=== PATIENT | female | born 1985 | race Caucasian/White ===

== ENCOUNTER 2016-06-17 10:55 | Emergency (ER) | payer OTHER ==
[~2016-06-17] VITALS: Ht 177.8 cm; Wt 81.6 kg
[~2016-06-17 10:55] MED LIST: CITRANATAL HAR1 EACH PO; IBUPROFEN800 M1 PO; PERCOCET 325 MG1 TA2 PO
--- NOTE | 2016-06-17 13:12 | ED PSYCHIATRIC COMPLAINT ---
History of Present Illness General Chief Complaint: Psychiatric Related Complaint Stated Complaint: DEPRESSION Source: patient, old records Exam Limitations: no limitations Vital Signs & Intake/Output Vital Signs & Intake/Output Vital Signs Date Time Temp Pulse Resp B/P Pulse O2 O2 Flow FiO2 Ox Delivery Rate 06/17 1300 98 06/17 1300 97.4 53 16 120/75 98 Room Air 06/17 1107 97.2 74 20 106/66 97 Room Air Allergies Uncoded Allergies: EMBREL (Mild, SKIN REACTION 06/17/16) Reconcile Medications Ibuprofen 800 MG TABLET 800 MG PO Q6P PRN UTERINE CRAMPING Pnv59/Iron,Carb&Fum/FA/Dss/Dha (Citranatal [place] Capsule) 1 EACH CAPSULE 1 CAP PO DAILY (Reported) Triage Note: PT SIB [address] [facility] FOR POST DEPRESSION. PT IS 12 WEEKS AND FEELING ANXIETY, DEPRESSION AND OVERWHELMED. STATES IS IN IS GETTING DEPLOYED IN NOVEMBER. Triage Nurses Notes Reviewed? yes Onset: Evening Duration: week(s):, continues in ED, getting worse Timing: recent history Severity: moderate Associated Symptoms: anxiety, impaired concentration, insomnia LMP (ages 10-50): unknown : No Patient currently breastfeeds: No HPI: Patient is 12 weeks with insomnia anorexia frustration contemplating striking her child. She denies fever chills nausea vomiting diarrhea abdominal pain chest pain shortness breath headache dysuria rash bleeding suicidal ideation homicidal ideation hallucination. Past History Travel History Traveled to [place] past 21 day No Medical History Any Pertinent Medical History? 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 No Review of Systems Review of Systems Constitutional: Reports: no symptoms. EENTM: Reports: no symptoms. Respiratory: Reports: no symptoms. Cardiovascular: Reports: no symptoms. GI: Reports: no symptoms. Genitourinary: Reports: no symptoms. Musculoskeletal: Reports: no symptoms. Skin: Reports: no symptoms. Neurological/Psychological: Reports: see HPI, anxiety, confusion, depressed. Hematologic/Endocrine: Reports: no symptoms. Immunologic/Allergic: Reports: no symptoms. All Other Systems: Reviewed and Negative Physical Exam Physical Exam General Appearance: well developed/nourished, alert, awake, anxious, mild distress Head: atraumatic, normal appearance Eyes: Bilateral: normal appearance, PERRL, EOMI. Ears, Nose, Throat: normal pharynx, normal ENT inspection, hearing grossly normal Neck: normal inspection, supple, full range of motion, no midline tenderness Respiratory: normal breath sounds, chest non-tender, no respiratory distress, quiet respiration, lungs clear Cardiovascular: regular rate/rhythm, normal peripheral pulses, norml femoral pulses equa Gastrointestinal: normal bowel sounds, soft, non-tender, no organomegaly Extremities: normal range of motion, no ligament instability Neurological/Psychiatric: no motor/sensory deficits, awake, agitated, alert, anxious, japanese interpreter II-XII nml as tested Appearance/Memory/Insight: impaired insight Behavoir/Eye Contact/Speech: cooperative, normal speech Thoughts/Hallucinations: no apparent hallucination Skin: intact, normal color, warm/dry SAD PERSONS Done? patient not suicidal Progress Differential Diagnosis: drug intoxication, drug overdose, drug withdrawal, electrolyte abnormality, hypoglycemia, hypothyroidism Plan of Care: Orders Procedure Date/time Status Regular Diet 06/18 D Active Regular Diet 06/17 L Active URINE DRUG SCREEN FOR ER ONLY 06/17 1315 Complete TSH REFLEX 06/17 1315 Complete ETHANOL 06/17 1315 Complete COMPREHENSIVE METABOLIC PANEL 06/17 1315 Complete CBC WITHOUT DIFFERENTIAL 06/17 1315 Complete ED CRISIS PSYCH CONSULT 06/17 1315 Active Laboratory Tests 06/17/16 1527: Urine Opiates Screen < 100.00, Methadone Screen < 40, Barbiturate Screen < 60, Ur Phencyclidine Scrn < 6.00, Amphetamines Screen < 100, U Benzodiazepines Scrn < 85, Urine Cocaine Screen < 50, Urine Cannabis Screen < 5.00 06/17/16 1416: Anion Gap 12, Estimated GFR > 60, BUN/Creatinine Ratio 12.9, Glucose 87, Calcium 10.0, Total Bilirubin 0.6, AST 21, ALT 40, Alkaline Phosphatase 74, Total Protein 7.5, Albumin 4.6, Globulin 2.9, Albumin/Globulin Ratio 1.6, TSH &T3 & Free T4 Intrp 1.420, CBC w Diff MAN DIFF ORDERED, RBC 4.59, MCV 92.4, MCH 31.0, RDW 13.1, MPV 8.4, Gran % 59.3, Lymphocytes % 36.3, Monocytes % 3.6, Eosinophils % 0.5, Basophils % 0.3, Absolute Granulocytes 5.8, Absolute Lymphocytes 3.6 H, Absolute Monocytes 0.4, Absolute Eosinophils 0, Absolute Basophils 0, Platelet Estimate VERIFIED BY SMEAR, Normocytic RBCs VERIFIED, Normochromic RBCs VERIFIED , PUBS MCHC 33.5, Serum Alcohol < 10.0 Departure Departure Time of Disposition: 1700 Disposition: HOME OR SELF CARE Condition: Stable Clinical Impression Primary Impression: depression Referrals: PATIENT HAS NO PRIMARY CARE DR (PCP/Family) Additional Instructions: Follow up with the recommendations of the barrow worker Departure Forms: Customer Survey General Discharge Information
[2016-06-17 14:37] LABS: ABSOLUTE BASOPHIL COUNT 0 /CUMM (0.0-0.2); ABSOLUTE EOSINOPHIL COUNT 0 /CUMM (0.0-0.7); ABSOLUTE GRANULOCYTE CT 5.8 /CUMM (1.4-6.5); ABSOLUTE LYMPH COUNT 3.6 /CUMM (1.2-3.4); ABSOLUTE MONOCYTE COUNT 0.4 /CUMM (0.10-0.60); BASOPHIL % 0.3 % (0.0-2.0); EOSINOPHIL % 0.5 % (0-5); GRANULOCYTE % 59.3 % (42.2-75.2); HEMATOCRIT 42.4 % (37-47); MEAN CORPUSCULAR HGB CONC 33.5 G/DL (33.0-37.0); MEAN CORPUSCULAR VOLUME 92.4 FL (81.0-99.0); MEAN PLATELET VOLUME 8.4 FL (7.4-10.4); PLATELET COUNT 263 /CUMM (130-400); RBC DISTRIBUTION WIDTH 13.1 % (11.5-14.5); RED BLOOD CELL CT 4.59 /CUMM (4.20-5.40); WHITE BLOOD CELL COUNT 9.8 /CUMM (4.8-10.8)
--- NOTE | 2016-06-17 17:17 | ED PSYCH CRISIS CONSULTATION ---
Crisis Consult Basic Assessment Date of Consult: 06/17/16 Responsible Person/Accompanied By: is with her Insurance Authorization: Insurance #1: Insurance name: [employer] [place]. 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 Her and the baby are present. pt was at her Obgyn earlier, and she wanted some help with anxiety, as she reports she has no psych history. Pt states she told her obgyn, that she feels like squeezing her babies face and she sent her here for further evaluation. I met with pt privately, and her states he is not worried about her safety, and he is comfortable with her watching the baby alone. They have been 2 years and have been dating for 3 years before that. Pt is overwhelmed that her will be deployed in November and that he is a service desk technician in [place], he works 3 nights in a row and she is alone with the baby. Although he sleeps well, she reports he slept 5 hours last night. She denies si/hi/ah/vh. She reports wanting to control everything, and having trouble asking for help. She would like to start medication short term and talk with a therapist. Pt denies wanting to harm her baby. Pt has insurance and we discussed resources to call to begin treatment tomorrow, including 211 for mobile psych services. Patient's Address: [address] [place] [address] Other Phone Number: Who Do You Live With? Family Family/Informants Interviewed: Massimo holt does feel safe with caring for their baby, and that he would be supportive to getting her help. Allergies - Uncoded Allergies: EMBREL (Mild, SKIN REACTION 06/17/16) Current Medications - Scheduled Medications Pnv59/Iron,Carb&Fum/FA/Dss/Dha (Citranatal [place] Capsule) 1 EACH CAPSULE 1 CAP PO DAILY #30 (Reported) Entered as Reported by LILY WALLACE on 11/15/15 1859 Scheduled PRN Medications Ibuprofen 800 MG TABLET 800 MG PO Q6P PRN UTERINE CRAMPING #30 Prescribed by SARAH PARIS DO on 03/11/16 Laboratory Results: Laboratory Tests 06/17/16 1527: Urine Opiates Screen < 100.00, Methadone Screen < 40, Barbiturate Screen < 60, Ur Phencyclidine Scrn < 6.00, Amphetamines Screen < 100, U Benzodiazepines Scrn < 85, Urine Cocaine Screen < 50, Urine Cannabis Screen < 5.00 06/17/16 1416: Anion Gap 12, Estimated GFR > 60, BUN/Creatinine Ratio 12.9, Glucose 87, Calcium 10.0, Total Bilirubin 0.6, AST 21, ALT 40, Alkaline Phosphatase 74, Total Protein 7.5, Albumin 4.6, Globulin 2.9, Albumin/Globulin Ratio 1.6, TSH &T3 & Free T4 Intrp 1.420, CBC w Diff MAN DIFF ORDERED, RBC 4.59, MCV 92.4, MCH 31.0, RDW 13.1, MPV 8.4, Gran % 59.3, Lymphocytes % 36.3, Monocytes % 3.6, Eosinophils % 0.5, Basophils % 0.3, Absolute Granulocytes 5.8, Absolute Lymphocytes 3.6 H, Absolute Monocytes 0.4, Absolute Eosinophils 0, Absolute Basophils 0, Platelet Estimate VERIFIED BY SMEAR, Normocytic RBCs VERIFIED, Normochromic RBCs VERIFIED , PUBS MCHC 33.5, Serum Alcohol < 10.0 Past History Past Medical History Neurological: NONE EENT: NONE Cardiovascular: NONE Respiratory: NONE Gastrointestinal: NONE Hepatic: NONE Renal: NONE Musculoskeletal: rheumatoid arthritis Psychiatric: NONE Endocrine: NONE Blood Disorders: NONE Cancer(s): NONE 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 Past Surgical History Surgical History: none Psychosocial History Strengths/Capabilities: supportive , wants to connect with outpatient services for anxiety Psychiatric Treatment History Psych Treatment Psychiatric Treatment No Diagnosis by History: Unknown Substance Use/Abuse History Drug Use/Abuse Substances Used/Abused No Substance Abuse Treatment Substance Abuse Treatment Past Substance Abuse [place] No Current Mental Status Mental Status Orientation: Person, Place, Situation Affect: Anxious, Sad Speech: WNL Neuro-vegetative: Appetite Decreased, Helpless, Sleep Disturbance Appearance Appearance- Dress/Hygiene: Well groomed Behaviors Thought Process: Irrational Thought Content: WNL Memory: WNL Insight: Fair SI/HI Risk Assessment Past Suicidal Ideation/Attempts No Current Suicidal Ideation/Att No Past Homicidal Ideation/Att: No Current Homicidal Ideation/Attempts No Degree of Intent: None Risk Factors: high anxiety/distress, limited support Lethality Ratin PTSD Checklist PTSD Done? patient declined ED Management Sitter: Yes Restraints: No DSM5/PS Stressors/Medical Prob Diagnosis' (DSM 5, Stressors, Medical): F41.9 Generalized anxiety disorder onset Current GAF: 38 Departure Disposition Psych Medical Clearance Date: 06/17/16 Medically Cleared at: 1630 Time Started: 1630 Time Ended: 1729 Psychiatrist Consulted: qing Date Disposition Established: 06/17/16 Time Disposition Established: 1729 Plan for Disposition - Modality: Outpatient Facility: Patient to Arrange Follow-up Appt Date: 06/18/16 Rationale for Disposition: Consulted with Dr. Tejeda, pt will return home with , and was given a list of providers for outpatient support, including [facility] which is a resource for mothers. Pt encouraged to look for more support agrees and would consider his parents as well or her father. Additional Instructions: Pt to follow up with looking into support services for mother i.e. mothers helpers Referrals PATIENT HAS NO PRIMARY CARE DR (PCP/Family)
[2016-06-17 17:32] VITALS: BP 136/83
== END 2016-06-17 17:33 ==
LOC: ERH 10:55
PROVIDERS: Emergency Medicine
DX: F53 Mental and behavioral disorders associated with the puerperium, not elsewhere classified (principal); F10.10 Alcohol abuse, uncomplicated
CPT/HCPCS: 80307; G0463; G0480

== ENCOUNTER 2017-07-02 08:39 | Inpatient (IN) | payer OTHER ==
[~2017-07-02] VITALS: Ht 177.8 cm; Wt 87.5 kg
[2017-07-02 08:58] VITALS: BP 113/68
--- NOTE | 2017-07-02 09:46 | History & Physical ---
General Information and HPI MD Statement: I have seen and personally examined JESI HERRON and documented this H&P. The patient is a 31 year old female at 39 weeks and 2 days gestation who presented with a chief complaint of ADVANCED CERVICAL DILATION. Source of Information: patient, old records Exam Limitations: no limitations History of Present Illness: PT well known to our practice who is dilated 4-5 cm and requests elective induction since her is on leave from the [employer]. GBS positive no allergy to Penicillin H/O RA no meds H/O PP depression H/O pyelonephritis Allergies/Medications Allergies: Uncoded Allergies: EMBREL (Mild, SKIN REACTION 06/17/16) Home Med list Pnv59/Iron,Carb&Fum/FA/Dss/Dha (Citranatal [place] Capsule) 1 EACH CAPSULE 1 CAP PO DAILY (Reported) Compliance With Home Meds: GOOD Past History reference assistant History : 2 Para: 1 Last Menstrual Period: 09/30/2016 Estimated Delivery Date: 07/07/2017 Past reference assistant History: none Past Pregnancies Past Pregnancies: Date of Delivery: 03/09/2016 Gestational Age: 39w4d Length of Labor: 24 hours Weight: 9# 10 oz Type of Delivery: vaginal Anesthesia: epidural Place of Delivery: [place] Complications: none Medical History Blood Transfusion Hx: No Neurological: NONE EENT: NONE Cardiovascular: NONE Respiratory: NONE Gastrointestinal: NONE Hepatic: NONE Renal: NONE Musculoskeletal: rheumatoid arthritis Psychiatric: NONE Endocrine: NONE Blood Disorders: NONE Cancer(s): NONE Surgical History Pertinent Surgical History: none, N Past Family/Social History Psychosocial History Smoking Status: Never Smoked Review of Systems Review of Systems Constitutional: Reports: no symptoms. Denies: chills, fever. EENTM: Denies: blurred vision, double vision, visual changes. Cardiovascular: Denies: chest pain, palpitations, peripheral edema. Respiratory: Denies: short of breath. GI: Denies: nausea, vomiting. Neurological/Psychological: Denies: anxiety, depressed. Exam & Diagnostic Data Last 24 Hrs of Vital Signs/I&O Vital Signs Date Time Temp Pulse Resp B/P B/P Pulse O2 O2 Flow FiO2 Mean Ox Delivery Rate 07/02 0858 113/68 Intake & Output 07/02 1600 07/02 0800 07/02 0000 Intake Total Output Total Balance Patient 193 lb Weight Obstetric Exam Wgt Gained During : 30 lbs Pelvimetry: tested to 9# 10oz Dilation (cm): 4 Effacement (%): 60 Station: 0 Membranes: AROM Fluid: clear Fundal Height (cm): 39 Multiple Gestation? No Contractions: none Infant #1 - FHR Baseline: 140 Category: 1 Estimated Weight: 8# Presentation: vtx Patient for Induction? Yes Burr Score Burr Score Response Value Cervix Position: mid-position 1 Cervix Consistency: soft 2 Cervix Effacement: 60-70% 2 Cervix Dilation: 3-4 cm 2 Cervix Station: +1,+2 3 Total 10 Physical Exam General Appearance Alert, Oriented X3, Cooperative, No Acute Distress Skin No Rashes HEENT Atraumatic Neck Supple Cardiovascular Regular Rate Lungs Clear to Auscultation Abdomen Soft, No Tenderness Neurological Normal Gait, Normal Speech, Normal Tone Extremities No Edema Labs Blood Type & Rh: A pos Antibody Screen: neg Hct/Hgb & Platelets #1: 39/12.3/241 Hct/Hgb & Platelets #2: 38/11.4/212 Rubella: imm VDRL #1: nr VDRL #2: nr HbsAg: neg HIV #1: nr HIV #2 nr 1 Hr P Group B Strep: positive Initial Ultrasound: 12/02/2016 9w Anatomy Ultrasound: 02/17/2017 normal Ultrasound for EFW: 06/09/2017 7#1oz Genetic Testing: NT normal, early screen normal MSAFP negative Last 24 Hrs of Labs/Keo: Laboratory Tests 07/02/17 0924: CBC w Diff Pending, WBC Pending, RBC Pending, Hgb Pending, Hct Pending, MCV Pending, MCH Pending, MCHC Pending, RDW Pending, Plt Count Pending, MPV Pending Assessment/Plan Assessment/Plan: IUP at term advanced cervical dilation GBS positive no allergy to Penicillin H/O RA no meds H/O PP depression H/O pyelonephritis As Ranked By This Provider Problem List: 1. Core Measures Venous Thromboembolism VTE Risk Factors / No Mechanical VTE Prophylaxis d/t LowRisk-No Interven Req'd No VTE Pharm Prophylaxis d/t LowRisk-No Interven Req'd Attending MD Review Statement Attending Statement Attending MD Statement: examined this patient, discussed with family, discussed w/nursing
[2017-07-02 09:56] LABS: ABSOLUTE BASOPHIL COUNT 0 /CUMM (0.0-0.2); ABSOLUTE EOSINOPHIL COUNT 0 /CUMM (0.0-0.7); ABSOLUTE GRANULOCYTE CT 4.9 /CUMM (1.4-6.5); ABSOLUTE LYMPH COUNT 2.3 /CUMM (1.2-3.4); ABSOLUTE MONOCYTE COUNT 0.3 /CUMM (0.10-0.60); BASOPHIL % 0.3 % (0.0-2.0); EOSINOPHIL % 0.5 % (0-5); GRANULOCYTE % 65.2 % (42.2-75.2); HEMATOCRIT 34.1 % (37-47); MEAN CORPUSCULAR HGB 31.7 PG (27.0-31.0); MEAN CORPUSCULAR HGB CONC 33.8 G/DL (33.0-37.0); MEAN CORPUSCULAR VOLUME 93.7 FL (81.0-99.0); MEAN PLATELET VOLUME 9.9 FL (7.4-10.4); PLATELET COUNT 182 /CUMM (130-400); RBC DISTRIBUTION WIDTH 13.5 % (11.5-14.5); RED BLOOD CELL CT 3.64 /CUMM (4.20-5.40); WHITE BLOOD CELL COUNT 7.6 /CUMM (4.8-10.8)
--- NOTE | 2017-07-02 14:07 | Labor & Delivery Summary ---
Delivery Summary Vaginal Delivery: Vaginal: vertex Episiotomy/Lacerations: Episiotomy/Lacerations: 1 DEGREE Type: 1 DEGREE Repair: 3-0 POLYSORB Anesthesia: 5CC NESACANE Placenta: Placenta: spontanteous, normal, 3 vessel Anesthesia: none Baby's Weight: 9# 4OZ Apgars - 1 Min: 9 Apgars - 5 Min: 9 Additional Comments: NO TIME FOR EPIDURAL 3 PUSHES WITH ONLY A SMALL 1DEGREE MIDLINE LAC
[2017-07-03 09:26] LABS: ABSOLUTE BASOPHIL COUNT 0 /CUMM (0.0-0.2); ABSOLUTE EOSINOPHIL COUNT 0 /CUMM (0.0-0.7); ABSOLUTE GRANULOCYTE CT 7.4 /CUMM (1.4-6.5); ABSOLUTE LYMPH COUNT 1.9 /CUMM (1.2-3.4); ABSOLUTE MONOCYTE COUNT 0.2 /CUMM (0.10-0.60); BASOPHIL % 0.3 % (0.0-2.0); EOSINOPHIL % 0.3 % (0-5); GRANULOCYTE % 77.3 % (42.2-75.2); MEAN CORPUSCULAR HGB 31.8 PG (27.0-31.0); MEAN CORPUSCULAR HGB CONC 33.5 G/DL (33.0-37.0); MEAN CORPUSCULAR VOLUME 94.9 FL (81.0-99.0); MEAN PLATELET VOLUME 10.1 FL (7.4-10.4); PLATELET COUNT 153 /CUMM (130-400); RBC DISTRIBUTION WIDTH 13.5 % (11.5-14.5); RED BLOOD CELL CT 3.58 /CUMM (4.20-5.40); WHITE BLOOD CELL COUNT 9.5 /CUMM (4.8-10.8)
--- NOTE | 2017-07-03 10:41 | PN- OBGYN ---
Surgical Brief Attending Note Brief Attending Note: PPD#1 pt is ambulating, no complaints, tolerate diet, void without difficulties PE: VSS Abdomen: soft, nontender, uteryus firm, fundus below umbilicus. lochia mild Ext: DCT (-) A/P: 31yo, s/p , PPD#1 1. encourage ambulation and 2. pt does not want cicumcision for the baby 3.RT PP care
[2017-07-04] MEDS ORDERED: IBUPROFEN800 M1 PO (09:09)
--- NOTE | 2017-07-04 09:26 | PN- OBGYN ---
Surgical Brief Attending Note Brief Attending Note: PPD#2 pt c/o discomfort of labia area, no other issues.tolerate diet, void without difficulties, ambulating well. PE: VSS CV RRR Lungs CTA B/L Abdomen: soft, nontender, uterus firm, fundus below umbilicus. lochia mild Ext: DCT (-) perineum: left labia small seperation area at upper portion, no bleeding. A/P: 31yo, s/p ,PPD#2 1. Discussed with patient about examined findings, options: Observation now let heal spontaneously versus repair under local anesthesia now reviewed with pt , she understand, choose to observe and let it heal spontaneously now. Precautions reviewed with the patient, she understand. 2. RT PP care d/w pt,will discharge pt , discharge instructions given.
== END 2017-07-04 10:02 | DRG 775 ==
LOC: GNO 08:39
PROVIDERS: Obstetrics & Gynecology
PROC: 10E0XZZ Delivery of Products of Conception, External Approach (ICD-10-PCS; principal; 2017-07-02)
PROC: 0HQ9XZZ Repair Perineum Skin, External Approach (ICD-10-PCS; principal; 2017-07-02)
DX: O70.0 First degree perineal laceration during delivery (principal); M06.9 Rheumatoid arthritis, unspecified; Z37.0 Single live birth; Z3A.39 39 weeks gestation of pregnancy
CPT/HCPCS: GNOS; 36415; 81001; 96372; J7120